=== PATIENT | female | born 1965 | race Caucasian/White ===

== ENCOUNTER → 2017-08-17 | Outpatient (CLI) | payer OTHER ==
[~2017-08-17] MED LIST: CEP500 PO; ENOX80DI8 SQ; HYDR-3087 PO; NO ROUTINE MEDS; PER PO; SENN-90 PO; WARF-12 PO; [UNRECOGNIZED DRUG - CODE] PO; [UNRECOGNIZED DRUG - CODE] PO; [UNRECOGNIZED DRUG - REMARK]
--- NOTE | 2017-08-17 14:13 | RADIOLOGY IMAGING REPORT ---
FACILITY: [facility] PATIENT NAME: Joanna Odom : 1965 MR: [id number] V: [id number] EXAM DATE: ORDERING PHYSICIAN: EDWIN PALACIOS TECHNOLOGIST: Location: [facility] Patient: Joanna Odom : 1965 Visit/Account:[id number] Date of Sevice: 08/17/2017 THORACIC SPINE 2 VIEW Indication: Pain in thoracic spine, no known injury. Comparison: None. Findings: There is very mild superior endplate compression at T10. The remaining vertebral bodies he ights are maintained. Disc spaces are normal. IMPRESSION: Very subtle superior endplate compression changes at T10. If there is high suspicion of a fracture at this level, recommend MRI for further evaluation. Differential diagnosis includes a lockwood btle compression fracture, versus normal vertebral body. Report Dictated By: Juan Jose Pringle at 08/17/2017 2:06 PM Report E-Signed By: Juan Jose Pringle at 08/17/2017 2:09 PM WSN:[email or web address]
== END ==
LOC: RAD 12:58
PROVIDERS: ATTEND Chiropractor
DX: M48.54XA Collapsed vertebra, not elsewhere classified, thoracic region, initial encounter for fracture (principal)
CPT/HCPCS: 72070

== ENCOUNTER → 2018-01-23 | Outpatient (CLI) | payer OTHER ==
--- NOTE | 2018-01-23 09:50 | RADIOLOGY IMAGING REPORT ---
FACILITY: [facility] PATIENT NAME: Joanna Odom : 1965 MR: [id number] V: [id number] EXAM DATE: ORDERING PHYSICIAN: ALVA SOMMERS TECHNOLOGIST: Location: [facility] [place] Patient: Joanna Odom : 1965 Visit/Account:[id number] Date of Sevice: 01/23/2018 Exam type: CERVICAL SPINE 2 OR 3 VIEW History: Back pain, no known injury Comparison: None. Findings: There is mild to moderate disc space narrowing at C5-6 with small anterior osteophytes. There is no evidence of acute fractures or subluxations.. The patient has canted towards the right. No evidence of prevertebral soft tissue swelling IMPRESSION: 1. Mild to moderate disc space narrowing at C5-6 with small anterior osteophytes Report Dictated By: Lyndsey Schulz MD at 01/23/2018 9:44 AM Report E-Signed By: Lyndsey Schulz MD at 01/23/2018 9:46 AM WSN:[email or web address]
--- NOTE | 2018-01-23 09:51 | RADIOLOGY IMAGING REPORT ---
FACILITY: [facility] [place] PATIENT NAME: Joanna Odom : 1965 MR: [id number] V: [id number] EXAM DATE: ORDERING PHYSICIAN: ALVA SOMMERS TECHNOLOGIST: [place] [facility] [place] Odom : 1965 Visit/Account:[id number] Date of Sevice: 01/23/2018 Exam type: THORACIC SPINE 3 VIEWS History: Back pain, no known injury Comparison: None. Findings: There is no evidence of acute fractures or subluxations in the thoracic spine. Mild disc space narro wing and small anterior osteophytes are noted in the midthoracic spine. IMPRESSION: 1. Mild disc space narrowing and small anterior osteophytes in the midthoracic spine consistent with mild spondylotic changes Report Dictated By: Lyndsey Schulz MD at 01/23/2018 9:46 AM Report E-Signed By: Lyndsey Schulz MD at 01/23/2018 9:48 AM WSN:[email or web address]
== END ==
LOC: RAD 08:45
PROVIDERS: ATTEND Family Medicine
DX: M54.2 Cervicalgia (principal); M54.6 Pain in thoracic spine
CPT/HCPCS: 72040; 72072